=== PATIENT | female | born 1995 | race Caucasian/White ===

== ENCOUNTER 2016-05-04 19:37 | Emergency (ER) | payer OTHER ==
[~2016-05-04] VITALS: Ht 165.1 cm; Wt 134.0 kg
[~2016-05-04 19:37] MED LIST: IBUP800T23 PO
[2016-05-04 19:39] VITALS: BP 138/80; PULSE 79; RESP 16; TEMP 97.9; O2SAT 100
[2016-05-04] MEDS ORDERED: predniSONE 20 MG TAB PO ONE (20:30)
[2016-05-04] MEDS: RESP: ALBUTEROL 2.5 MG/IPRATROPIUM 0.5 MG NEB (SCH) INH ×2 (20:42→20:43)
--- NOTE | 2016-05-04 20:45 | PD ---
HPI Chief Complaint: Respiratory Symptoms Time Seen by Provider: 20:15 Travel History International Travel<30 days: No Contact w/Intl Traveler<30days: No Traveled to known affect area: No History of Present Illness HPI Patient comes in complaining of worsening of her asthma over the past 3 days. Patient states it has been bothering her over the past 3 weeks but worse for the past 3 days. Patient states that she went home over [employer] break, but when she came back to school she had forgotten all of her asthma medications and has not had any since. Patient states she's been trying to not over exert herself. Complaining of tightness throughout her chest, dyspnea, and occasional cough. Denies any fevers, nausea, vomiting, abdominal pain, chest pain, back pain, or . PFSH Past Medical History Asthma: Yes Respiratory: Yes (ASTHMA) ?: Not LMP: 2 WKS AGO Social History Alcohol Use: Yes Tobacco Use: Yes Substance Use: No Allergies-Medications (Allergen,Severity, Reaction): Coded Allergies: No Known Allergies (Unverified , 05/04/16) Reported Meds & Prescriptions Reported Meds & Active Scripts Active Medrol Dosepak (Methylprednisolone) 4 Mg Dspk 4 Mg PO DIRECTED Per Pharmacist direction Ventolin Hfa 18 GM Inh (Albuterol Sulfate) 90 Mcg/Act Aer 2 Puff INH Q4H PRN Review of Systems Except as stated in HPI: all other systems reviewed are Neg Physical Exam Narrative GENERAL: Well-developed, overly nourished, in no acute distress, and non-ill appearing. SKIN: Warm and dry. HEAD: Atraumatic. Normocephalic. EYES: Pupils equal and round. EOMI. No scleral icterus. No injection or drainage. ENT: No nasal bleeding or discharge. Mucous membranes pink and moist. NECK: Trachea midline. Supple. No nuclear rigidity. CARDIOVASCULAR: Regular rate and rhythm. No murmur appreciated. RESPIRATORY: No accessory muscle use. No respiratory distress. Decreased breath sounds throughout. Breath sounds equal bilaterally. Patient speaking in full sentences without difficulty. MUSCULOSKELETAL: No obvious deformities. No clubbing. No cyanosis. No edema. Full range of motion. NEUROLOGICAL: Awake and alert. No obvious cranial nerve deficits. Motor grossly within normal limits. Normal speech. PSYCHIATRIC: Appropriate mood and affect; insight and judgment normal. Data Data Last Documented VS Vital Signs Date Time Temp Pulse Resp B/P Pulse Ox O2 Delivery O2 Flow Rate FiO2 05/04/16 20:12 16 05/04/16 19:39 97.9 79 138/80 100 Orders Albuterol-Ipratropium Neb (Duoneb Neb) (05/04/16 20:30) Prednisone (Deltasone) (05/04/16 20:30) Acetaminophen (Tylenol) (05/04/16 21:30) MDM Medical Decision Making Medical Screen Exam Complete: Yes Emergency Medical Condition: Yes Differential Diagnosis Asthma, asthma exacerbation, bronchitis, pneumonia, upper respiratory infection , other Narrative Course The patient looks great and improved well with Nebulizer and steroid medication. The patient is moving air well and in no distress nor significant dyspnea, and oxygen saturation is within normal limits. There is no clinical evidence to suggest pneumonia at this time. Diagnosis, plan of care and management were discussed with the patient who agreed with plan and feels better and ready to go home. The patient was instructed to return if worsen, worsening difficulty breathing or wheezing, persistent fever, chest pain or as needed. Patient in no obvious distress upon re-evaluation. Patient was asked if they wanted to speak to my attending, which the patient did not wish to do at this time. Any questions/concerns in reference to patient diagnosis/condition discussed and clarified prior to patient's discharge. Reinforced sheer importance of close follow up with patient's primary physician or primary care clinic. Instructed patient to return to ED immediately, if symptoms return/ worsen. Pt showed understanding of above instructions. Further instructions and recommendations were detailed in discharge paperwork. Pt ambulated without difficulty out of ED at discharge. Diagnosis Primary Impression: Asthma Qualified Code: J45.909 - Uncomplicated asthma, unspecified asthma severity Patient Instructions: Asthma (ED), General Instructions Additional Instructions: Follow-up with your primary care physician in 3-5 days for reevaluation. Take all medication as prescribed. Return to the emergency department if symptoms get worse. Med/Other Pt SpecificInfo: Prescription(s) given Scripts Methylprednisolone Dosepak (Medrol Dosepak)4 Mg Dspk4 Mg PO DIRECTED #1 DSPK Ref 0 Per Pharmacist direction Prov:Britt Rajan MD 05/04/16 Albuterol 18 GM Inh (Ventolin Hfa 18 GM Inh)90 Mcg/Act Aer2 Puff INH Q4H PRN ( SHORTNESS OF BREATH) #1 INHALER Ref 0 Prov:Britt Rajan MD 05/04/16 Disposition: 01 DISCHARGE HOME Condition: Stable Davide Valderrama May 04, 2016 20:45
[2016-05-04] MEDS ORDERED: VENTAER INH (21:25)
[2016-05-04] MEDS ORDERED: MEDR4PAK PO (21:25)
[2016-05-04] MEDS ORDERED: ACETAMINOPHEN 325 MG TAB PO ONE (21:30)
== END 2016-05-04 21:38 | disposition home or self-care (01) ==
LOC: NEPB 19:37
DX: J45.909 Unspecified asthma, uncomplicated (principal); Z72.0 Tobacco use
CPT/HCPCS: 94640; 94664; 99283; J7512

== ENCOUNTER 2016-05-17 18:14 | Emergency (ER) | payer OTHER ==
[~2016-05-17] VITALS: Ht 165.1 cm; Wt 136.8 kg
[~2016-05-17 18:14] MED LIST changes: -IBUP800T23 PO; +MEDR4PAK PO; +VENTAER INH
[2016-05-17 18:26] VITALS: BP 137/86; PULSE 80; RESP 16; TEMP 98.7; O2SAT 100
[2016-05-17] MEDS ORDERED: [UNRECOGNIZED DRUG - OTHER] PO (18:44)
[2016-05-17] MEDS ORDERED: SLIDING SCALE SQ (18:44)
--- NOTE | 2016-05-17 18:55 | PD ---
HPI . coughing and sore throat for 1 week Chief Complaint: ENT Complaint Time Seen by Provider: 18:56 Travel History International Travel<30 days: No Contact w/Intl Traveler<30days: No Traveled to known affect area: No History of Present Illness HPI 20 yr old female with asthma and DM here with c/o sore throat and coughing for 3 -4 days. Patient was previously treated for asthma exacerbation and is doing much better. She is still coughing and now has a sore throat for several days. She is seeking treatment for her sore throat and cough. She admits to smoking marijuana and usually has this bout of coughing once a year around this time. She denies any SOB. PFSH Past Medical History Asthma: Yes Diabetes: Yes Patient Takes Glucophage: Yes (Patient doesn't know what medications she takes ) Hypertension: Yes Respiratory: Yes (ASTHMA) Tetanus Vaccination: Unknown Influenza Vaccination: No ?: Not LMP: 04/23/16 Past Surgical History Tonsillectomy: Yes Social History Alcohol Use: Yes (Socially) Tobacco Use: Yes (1/2 PPD) Substance Use: No (Denies) Allergies-Medications (Allergen,Severity, Reaction): Coded Allergies: No Known Allergies (Unverified , 05/17/16) Reported Meds & Prescriptions Reported Meds & Active Scripts Active Proair Hfa 8.5 GM Inh (Albuterol Sulfate) 90 Mcg/Act Aer 2 Puff INH Q6H PRN 108 mcg/actuation Medrol Dosepak (Methylprednisolone) 4 Mg Dspk 4 Mg PO DIRECTED Per Pharmacist direction Joseph Sevilla (Benzonatate) 100 Mg Cap 100 Mg PO TID PRN Zithromax Z-Dino (Azithromycin) 250 Mg Dspk 250 Mg PO DIRECTED 500 MG (2 tabs) day 1, then 1 tab days 2-5. Reported [Sliding scale ] 5-25 Units SQ DIRECTED [Diabetes med] 1 Tab PO BID Review of Systems General / Constitutional: No: Fever Eyes: No: Visual changes HENT: Positive: Sore Throat, No: Headaches Cardiovascular: No: Chest Pain or Discomfort Respiratory: Positive: Cough, No: Shortness of Breath Gastrointestinal: No: Abdominal Pain Genitourinary: No: Dysuria Musculoskeletal: No: Pain Skin: No Rash Neurologic: No: Weakness Psychiatric: No: Depression Endocrine: No: Polydipsia Hematologic/Lymphatic: No: Easy Bruising Physical Exam Narrative GENERAL: AAO x 3, no acute distress, Well-nourished, well-developed patient. SKIN: Warm and dry. No visible rashes or bruising. HEAD: Normocephalic and atraumatic. EYES: No scleral icterus. No injection or drainage. ENT: No nasal drainage noted. Mucous membranes pink. Airway patent. Mild posterior pharynx erythema, no edema or exudates. TMs normal bilaterally. NECK: Supple, trachea midline. No JVD. Mild cervical chain lymphadenopathy. CARDIOVASCULAR: Regular rate and rhythm without murmurs, gallops, or rubs. RESPIRATORY: Breath sounds equal bilaterally. No accessory muscle use. No rhonchi or rales. Dry cough heard throughout examination GASTROINTESTINAL: Abdomen soft, non-tender, nondistended. EXTREMITIES: No cyanosis or edema. BACK: Nontender without obvious deformity. No CVA tenderness. PSYCH: AAO x 3, normal affect. Data Data Last Documented VS Vital Signs Date Time Temp Pulse Resp B/P Pulse Ox O2 Delivery O2 Flow Rate FiO2 05/17/16 18:40 16 05/17/16 18:26 98.7 80 137/86 100 MDM Medical Decision Making Medical Screen Exam Complete: Yes Emergency Medical Condition: Yes Medical Record Reviewed: Yes Differential Diagnosis bronchitis, pharyngitis, less likely PNA Narrative Course 20 yr old female with asthma and DM here with c/o sore throat and coughing for 3 -4 days. Patient was previously treated for asthma exacerbation and is doing much better. She is still coughing and now has a sore throat for several days. She is seeking treatment for her sore throat and cough. She admits to smoking marijuana and usually has this bout of coughing once a year around this time. She denies any SOB. Patient seen and examined. She appears to have an acute pharyngitis as well as bronchitis. I do not recommend any imaging or further testing. Recommend a treatment with Z-Dino and Medrol Dosepak. To try to refrain from smoking as this is exacerbating her symptoms. Patient verbalized understanding of instructions, questions were answered, and thanked me for their care. I advised them if their condition worsens, please return to the nearest emergency room for further care. Diagnosis Primary Impression: Asthmatic bronchitis Qualified Code: J45.909 - Asthmatic bronchitis, unspecified asthma severity, uncomplicated Additional Impression: Pharyngitis Qualified Code: J02.9 - Pharyngitis, unspecified etiology Patient Instructions: Acute Bronchitis (ED), General Instructions, Pharyngitis (ED) Additional Instructions: As we discussed the cough can last 6-8 weeks. Take medications as prescribed. If you are a smoker, try to quit. Follow up with your primary care provider. If you develop sudden onset or worsening of shortness or breath, please go to the nearest emergency room. Be careful with these steroids as they can increase your blood sugar. Med/Other Pt SpecificInfo: Prescription(s) given Scripts Albuterol 8.5 GM Inh (Proair Hfa 8.5 GM Inh)90 Mcg/Act Aer2 Puff INH Q6H PRN ( SHORTNESS OF BREATH) #1 INHALER Ref 0 108 mcg/actuation Prov:Abdullahi Chávez MD 05/17/16 Methylprednisolone Dosepak (Medrol Dosepak)4 Mg Dspk4 Mg PO DIRECTED #1 DSPK Ref 0 Per Pharmacist direction Prov:Abdullahi Chávez MD 05/17/16 Benzonatate (Tessalon Perles)100 Mg [id number] Mg PO TID PRN (COUGH) #21 CAP Ref 0 Prov:Abdullahi Chávez MD 05/17/16 Azithromycin (Zithromax Z-Dino)250 Mg [id number] Mg PO DIRECTED #1 DSPK Ref 0 500 MG (2 tabs) day 1, then 1 tab days 2-5. Prov:Abdullahi Chávez MD 05/17/16 Disposition: 01 DISCHARGE HOME Condition: Stable Lora Clement May 17, 2016 18:55
[2016-05-17] MEDS ORDERED: ZITHTAB PO (18:56)
[2016-05-17] MEDS ORDERED: ALBUAER3 INH (18:56)
[2016-05-17] MEDS ORDERED: MEDR4PAK PO (18:56)
[2016-05-17] MEDS ORDERED: BENZ100 PO (18:56)
== END 2016-05-17 19:23 | disposition home or self-care (01) ==
LOC: PHEFT 18:14
DX: J45.909 Unspecified asthma, uncomplicated (principal); J02.9 Acute pharyngitis, unspecified; F17.200 Nicotine dependence, unspecified, uncomplicated
CPT/HCPCS: 99283

== ENCOUNTER 2016-10-06 02:26 | Emergency (ER) | payer OTHER ==
[~2016-10-06 02:26] MED LIST changes: +ALBUAER3 INH; +BENZ100 PO; +SLIDING SCALE SQ; -VENTAER INH; +ZITHTAB PO; +[UNRECOGNIZED DRUG - OTHER] PO
[2016-10-06 02:29] VITALS: BP 130/72; PULSE 88; RESP 18; TEMP 98.1; O2SAT 100
== END 2016-10-06 03:15 | disposition left against medical advice (07) ==
LOC: NED 02:26
DX: S99.912A Unspecified injury of left ankle, initial encounter (principal); X58.XXXA Exposure to other specified factors, initial encounter; Z53.21 Procedure and treatment not carried out due to patient leaving prior to being seen by health care provider
CPT/HCPCS: 99281

== ENCOUNTER 2017-06-04 01:08 | Emergency (ER) | payer OTHER ==
[2017-06-04 01:16] VITALS: BP 166/81; PULSE 72; RESP 16; TEMP 98.1; O2SAT 100
[2017-06-04 02:05] VITALS: BP 159/81; PULSE 75; RESP 18; TEMP 98.5; O2SAT 100
[2017-06-04] MEDS ORDERED: SODIUM CHLOR 0.9% 1000 ML INJ 1,000 ML IV SCH (02:55)
[2017-06-04] MEDS ORDERED: SODIUM CHLOR 0.9% 1000 ML INJ 1,000 ML IV ONE (03:00)
[2017-06-04] MEDS ORDERED: SODIUM CHLORIDE 0.9% FLUSH 10 ML FLUSH IV FLUSH PRN (03:00)
[2017-06-04 03:14] VITALS: RESP 18; O2SAT 99
[2017-06-04 03:24] LABS: BASOPHIL # 0.1 TH/MM3 (0-0.2); BASOPHIL % 1.3 % (0.0-2.0); EOSINOPHIL # 0.1 TH/MM3 (0-0.4); EOSINOPHIL % 1.3 % (0.0-4.0); HEMATOCRIT 27.1 % (35.0-46.0); HEMOGLOBIN 8.2 GM/DL (11.6-15.3); LYMPH % 34.5 % (9.0-44.0); LYMPHOCYTE # 2.5 TH/MM3 (1.0-4.8); MEAN CELL VOLUME 60.4 FL (80.0-100.0); MEAN CORPUSCULAR HEMOGLOBIN 18.2 PG (27.0-34.0); MEAN CORPUSCULAR HGB CONC 30.2 % (32.0-36.0); MEAN PLATELET VOLUME 8.8 FL (7.0-11.0); MONOCYTE # 0.5 TH/MM3 (0-0.9); NEUT % 55.9 % (16.0-70.0); PLATELET COUNT 308 TH/MM3 (150-450); RED BLOOD COUNT 4.49 MIL/MM3 (4.00-5.30); RED CELL DISTRIBUTION WIDTH 20.5 % (11.6-17.2); WHITE BLOOD COUNT 7.1 TH/MM3 (4.0-11.0)
[2017-06-04 03:32] LABS: BACTERIA, URINE RARE /hpf; BILIRUBIN, URINE NEG (NEG); BLOOD, URINE NEG (NEG); GLUCOSE,URINE NEG (NEG); KETONE, URINE NEG (NEG); MUCUS URINE MOD /lpf (OCC); NITRITE,URINE NEG (NEG); PH, URINE 6.5 (5.0-8.5); SQUAMOUS EPITHELIAL CELL URINE 6 /hpf (0-5); URINE COLOR YELLOW (YELLW/STRAW); URINE LEUKOCYTE ESTERASE TRACE (NEG)
[2017-06-04 03:37] LABS: ALBUMIN 3.4 GM/DL (3.4-5.0); ALT (GPT) 16 U/L (10-53); AST (GOT) 14 U/L (15-37); BICARBONATE 29.7 MEQ/L (21.0-32.0); BLOOD UREA NITROGEN 7 MG/DL (7-18); CALCIUM 8.5 MG/DL (8.5-10.1); CHLORIDE 106 MEQ/L (98-107); CREATININE 0.81 MG/DL (0.50-1.00); GLOMERULAR FILTRATION RATE 88 ML/MIN (>89); GLUCOSE,RANDOM 79 MG/DL (74-106); SODIUM (NA) 142 MEQ/L (136-145)
[2017-06-04 03:47] LABS: ALKALINE PHOSPHATASE 111 U/L (45-117); TOTAL BILIRUBIN ADULT 0.2 MG/DL (0.2-1.0); TOTAL PROTEIN 8.2 GM/DL (6.4-8.2)
--- NOTE | 2017-06-04 04:06 | PD ---
HPI Chief Complaint: General Weakness Time Seen by Provider: 02:15 Travel History International Travel<30 days: No Contact w/Intl Traveler<30days: No Traveled to known affect area: No History of Present Illness HPI 21-year-old female arrives to the ER complaining of exhaustion for 2 weeks. It is worse today. She reports a history of diabetes and hypertension. Noncompliance of insulin is reported secondary to no primary care provider secondary to recently relocated to the area. No fever or vomiting. No urinary frequency or dysuria. No chest pain or shortness of breath. PFSH Past Medical History Asthma: Yes Diabetes: Yes Patient Takes Glucophage: No Diminished Hearing: No Hypertension: Yes Respiratory: Yes (ASTHMA) ?: Not LMP: 05/31/17 Past Surgical History Tonsillectomy: Yes Social History Alcohol Use: No Tobacco Use: Yes Substance Use: No Allergies-Medications (Allergen,Severity, Reaction): Coded Allergies: No Known Allergies (Unverified , 05/17/16) Reported Meds & Prescriptions Reported Meds & Active Scripts Active Proair Hfa 8.5 GM Inh (Albuterol Sulfate) 90 Mcg/Act Aer 2 Puff INH Q6H PRN 108 mcg/actuation Review of Systems Except as stated in HPI: all other systems reviewed are Neg General / Constitutional: No: Fever Eyes: No: Diploplia Physical Exam Narrative GENERAL: 21-year-old female pleasant well-nourished well-developed no acute distress sleep in the room Vital Signs Date Time Temp Pulse Resp B/P (MAP) Pulse Ox O2 Delivery O2 Flow Rate FiO2 06/04/17 03:14 18 99 Room Air 06/04/17 02:05 98.5 75 18 159/81 (107) 100 Room Air 06/04/17 01:16 98.1 72 16 166/81 (109) 100 SKIN: Warm and dry. HEAD: Atraumatic. Normocephalic. EYES: Pupils equal and round. No scleral icterus. No injection or drainage. ENT: No nasal bleeding or discharge. Mucous membranes pink and moist. NECK: Trachea midline. No JVD. CARDIOVASCULAR: Regular rate and rhythm. RESPIRATORY: No accessory muscle use. Clear to auscultation. Breath sounds equal bilaterally. GASTROINTESTINAL: Abdomen soft, non-tender, nondistended. Hepatic and splenic margins not palpable. MUSCULOSKELETAL: Extremities without clubbing, cyanosis, or edema. No obvious deformities. NEUROLOGICAL: Awake and alert. No obvious cranial nerve deficits. Motor grossly within normal limits. Five out of 5 muscle strength in the arms and legs. Normal speech. PSYCHIATRIC: Appropriate mood and affect; insight and judgment normal. Data Data Last Documented VS Vital Signs Date Time Temp Pulse Resp B/P (MAP) Pulse Ox O2 Delivery O2 Flow Rate FiO2 06/04/17 03:14 18 99 Room Air 06/04/17 02:05 98.5 75 Orders Orders Electrocardiogram (06/04/17 02:55) Complete Blood Count With Diff (06/04/17 02:55) Comprehensive Metabolic Panel (06/04/17 02:55) Creatine Kinase (Cpk) (06/04/17 02:55) Thyroid Stimulating Hormone (06/04/17 02:55) Urinalysis - C+S If Indicated (06/04/17 02:55) Blood Glucose (06/04/17 02:55) Ecg Monitoring (06/04/17 02:55) Iv Access Insert/Monitor (06/04/17 02:55) Oximetry (06/04/17 02:55) Sodium Chloride 0.9% Flush (Ns Flush) (06/04/17 03:00) Sodium Chlor 0.9% 1000 Ml Inj (Ns 1000 M (06/04/17 02:55) Drug Screen, Random Urine (06/04/17 02:55) Alcohol (Ethanol) (06/04/17 02:55) Sodium Chlor 0.9% 1000 Ml Inj (Ns 1000 M (06/04/17 03:00) Urine Culture (06/04/17 03:00) CKMB (06/04/17 03:06) CKMB% (06/04/17 03:06) Labs Laboratory Tests Test 06/04/17 03:00 06/04/17 03:06 Urine Color YELLOW Urine Turbidity CLEAR Urine pH 6.5 Urine Specific [place] 1.018 Urine Protein NEG mg/dL Urine Glucose (UA) NEG mg/dL Urine Ketones NEG mg/dL Urine Occult Blood NEG Urine Nitrite NEG Urine Bilirubin NEG Urine Urobilinogen LESS THAN 2.0 MG/DL Urine Leukocyte Esterase TRACE Urine WBC 1 /hpf Urine Squamous Epithelial Cells 6 /hpf Urine Bacteria RARE /hpf Urine Mucus MOD /lpf Microscopic Urinalysis Comment CATH-CULTURE IND Urine Opiates Screen NEG Urine Barbiturates Screen NEG Urine Amphetamines Screen NEG Urine Benzodiazepines Screen NEG Urine Cocaine Screen NEG Urine Cannabinoids Screen POS White Blood Count 7.1 TH/MM3 Red Blood Count 4.49 MIL/MM3 Hemoglobin 8.2 GM/DL Hematocrit 27.1 % Mean Corpuscular Volume 60.4 FL Mean Corpuscular Hemoglobin 18.2 PG Mean Corpuscular Hemoglobin Concent 30.2 % Red Cell Distribution Width 20.5 % Platelet Count 308 TH/MM3 Mean Platelet Volume 8.8 FL Neutrophils (%) (Auto) 55.9 % Lymphocytes (%) (Auto) 34.5 % Monocytes (%) (Auto) 7.0 % Eosinophils (%) (Auto) 1.3 % Basophils (%) (Auto) 1.3 % Neutrophils # (Auto) 4.0 TH/MM3 Lymphocytes # (Auto) 2.5 TH/MM3 Monocytes # (Auto) 0.5 TH/MM3 Eosinophils # (Auto) 0.1 TH/MM3 Basophils # (Auto) 0.1 TH/MM3 CBC Comment DIFF FINAL Differential Comment Blood Urea Nitrogen 7 MG/DL Creatinine 0.81 MG/DL Random Glucose 79 MG/DL Total Protein 8.2 GM/DL Albumin 3.4 GM/DL Calcium Level 8.5 MG/DL Alkaline Phosphatase 111 U/L Aspartate Amino Transf (AST/SGOT) 14 U/L Alanine Aminotransferase (ALT/SGPT) 16 U/L Total Bilirubin 0.2 MG/DL Sodium Level 142 MEQ/L Potassium Level 3.2 MEQ/L Chloride Level 106 MEQ/L Carbon Dioxide Level 29.7 MEQ/L Anion Gap 6 MEQ/L Estimat Glomerular Filtration Rate 88 ML/MIN Total Creatine Kinase 265 U/L Creatine Kinase MB 0.9 NG/ML Creatine Kinase MB % 0.3 % Thyroid Stimulating Hormone 3rd Gen 1.870 uIU/ML Ethyl Alcohol Level LESS THAN 3 MG/DL MDM Medical Decision Making Medical Screen Exam Complete: Yes Emergency Medical Condition: Yes Medical Record Reviewed: Yes Differential Diagnosis Anemia electrolyte imbalance polysubstance abuse DKA UTI intrauterine Narrative Course CBC & BMP Diagram 06/04/17 03:06 Total Protein 8.2, Albumin 3.4, Calcium Level 8.5, Alkaline Phosphatase 111, Aspartate Amino Transf (AST/SGOT) 14 L, Alanine Aminotransferase (ALT/SGPT) 16, Total Bilirubin 0.2 TSH is 1.7 Toxicology is positive for cannabinoids Urine shows urinary tract infection The patient is resting comfortably and feels better, is alert and in no distress. The patients results and examination findings were discussed. The repeat examination is unremarkable and benign. The history, exam, diagnostic testing, and current condition do not suggest any significant pathology to warrant further testing, continued ED treatment, admission, or surgical evaluation at this point. The vital signs have been stable. The patient does not have uncontrollable pain, intractable vomiting, or other significant symptoms. The patient's condition is stable and appropriate for discharge. The patient will pursue further outpatient evaluation with a primary care physician or other designated or consulting physician as indicated in the discharge instructions. The patient expressed understanding and was agreeable with this plan. Diagnosis Primary Impression: Hypokalemia Additional Impressions: Urinary tract infection Qualified Codes: N30.00 - Acute cystitis without hematuria Marijuana use Generalized weakness Chronic anemia Referrals: Bakari Fang MD [facility] call for appointment Patient Instructions: General Instructions Med/Other Pt SpecificInfo: Prescription(s) given Scripts Ciprofloxacin (Cipro) 250 Mg Tab 250 MG PO BID for Infection for 3 Days, #6 TAB 0 Refills Prov: Anthony Camargo MD 06/04/17 Disposition: 01 DISCHARGE HOME Condition: Stable Anthony Camargo MD Jun 04, 2017 04:06
[2017-06-04] MEDS ORDERED: CIPR250T52 PO (04:15)
--- NOTE | 2017-06-04 16:31 | EKG ---
Date Performed: 06/04/2017 Time Performed: 03:21:10 PTAGE: 21 years EKG: Sinus rhythm WITH SINUS ARRHYTHMIA NONSPECIFIC T-WAVE ABNORMALITY BORDERLINE ECG NO PREVIOUS TRACING DOCTOR: Reema Xiong Interpretating Date/Time 06/04/2017 16:29:50
== END 2017-06-04 04:40 | disposition home or self-care (01) ==
LOC: NEPC 01:08
DX: E87.6 Hypokalemia (principal); N30.00 Acute cystitis without hematuria; R53.1 Weakness; D64.9 Anemia, unspecified; F12.90 Cannabis use, unspecified, uncomplicated; J45.909 Unspecified asthma, uncomplicated; Z72.0 Tobacco use
CPT/HCPCS: 80053; 80307; 81001; 82550; 82552; 84443; 85025; 87086; 93005; 99284; J7030